=== PATIENT | male | born 1950 | race Caucasian/White ===

== ENCOUNTER 2024-11-17 10:53 | Emergency (ER) | payer BC, MEDICARE ==
[~2024-11-17] VITALS: Ht 165.1 cm; Wt 89.3 kg
[2024-11-17] MEDS ORDERED: ATOR40TA75 PO (11:29)
[2024-11-17] MEDS ORDERED: TERA10CA3 PO (11:29)
[2024-11-17] MEDS ORDERED: VALS320T3 PO (11:29)
[2024-11-17] MEDS ORDERED: GABA-1172 PO (11:29)
[2024-11-17] MEDS ORDERED: TERA5CAP3 PO (11:29)
[2024-11-17 11:39] LABS: BASO # 0.0 10^3/uL (0.0-0.2); BASO % 0.5 % (0.0-1.0); EOS # 0.1 10^3/uL (0.0-0.5); EOS % 1.2 % (0.0-3.0); LYMPH # 1.8 10^3/uL (1.5-5.0); LYMPH % 30.2 % (24.0-44.0); MONO # 0.7 10^3/uL (0.0-0.8); MONO % 11.3 % (2.0-8.0); NEUTROPHILS # 3.4 10^3/uL (1.5-8.5); NEUTROPHILS % 56.6 % (36.0-66.0); PLATELET COUNT, AUTOMATED 162 10^3/uL (150-450)
[2024-11-17 11:52] LABS: INR 0.92
[2024-11-17 12:15] LABS: CALCIUM LEVEL 9.4 MG/DL (8.3-10.6); CARBON DIOXIDE LEVEL 27.0 MMOL/L (20-31); CHLORIDE LEVEL 106.0 MMOL/L (98-107); CREATININE FOR GFR 1.27 MG/DL (0.70-1.30); GLOMERULAR FILTRATION RATE 59.7 (>42); MAGNESIUM LEVEL 2.1 MG/DL (1.8-2.4); POTASSIUM SERUM 4.1 MMOL/L (3.5-5.1); SODIUM LEVEL 144.0 MMOL/L (136-145)
[2024-11-17 12:17] LABS: FREE T4 1.49 NG/DL (0.89-1.76)
[2024-11-17 14:19] VITALS: BP 179/80; TEMP 97; O2SAT 97
== END 2024-11-17 14:22 | disposition short-term general hospital (02) ==
LOC: M ED 10:53
DX: I44.1 Atrioventricular block, second degree (principal); I45.10 Unspecified right bundle-branch block; I10 Essential (primary) hypertension; F10.10 Alcohol abuse, uncomplicated; Z79.02 Long term (current) use of antithrombotics/antiplatelets; Z79.899 Other long term (current) drug therapy